=== PATIENT | male | born 1965 ===

== ENCOUNTER 2018-10-09 08:14 | Emergency (ER) | payer OTHER ==
[~2018-10-09] VITALS: Ht 170.2 cm; Wt 93.0 kg
[2018-10-09] MEDS ORDERED: SYNTHROID50 MCG PO (08:22)
[2018-10-09] MEDS ORDERED: ZYLOPRIM100 M1 PO (08:23)
[2018-10-09] MEDS ORDERED: AZOR 5-20 MG T1 EACH (08:23)
== END 2018-10-09 12:00 | disposition home or self-care (01) ==
LOC: ER 08:14
DX: N20.0 Calculus of kidney (principal); K57.90 Diverticulosis of intestine, part unspecified, without perforation or abscess without bleeding